=== PATIENT | female | born 1955 | race Caucasian/White ===

== ENCOUNTER 2016-10-24 08:42 | Emergency (ER) | payer OTHER ==
[~2016-10-24] VITALS: Ht 165.1 cm; Wt 125.0 kg
[2016-10-24 08:46] VITALS: BP 163/81; PULSE 68; RESP 16; TEMP 97.7; O2SAT 97
[2016-10-24] MEDS ORDERED: LEVO75TA3 PO (09:42)
--- NOTE | 2016-10-24 09:50 | PD ---
HPI Chief Complaint: Laceration/Skin Injury Time Seen by Provider: 09:35 Travel History International Travel<30 days: No Contact w/Intl Traveler<30days: No Traveled to known affect area: No History of Present Illness HPI 61 yo F. The patient accidentally injured the distal phalanx of the right index finger while preparing breakfast this morning resulting in laceration. Pt irrigated the wound at home. Copious bleeding was observed leading to ER evaluation. Resolution of bleeding occurred at time of ER arrival. No additional injury. Last tetanus > 5 years prior. PFSH Past Medical History Thyroid Disease: Yes Tetanus Vaccination: > 5 Years Influenza Vaccination: No ?: Not Past Surgical History Abdominal Surgery: Yes (Lap band) Section: Yes Social History Alcohol Use: Yes (Rare) Tobacco Use: No Substance Use: No Allergies-Medications (Allergen,Severity, Reaction): Coded Allergies: No Known Allergies (Unverified , 10/24/16) Reported Meds & Prescriptions Reported Meds & Active Scripts Active Reported Levothyroxine (Levothyroxine Sodium) 75 Mcg Tab 75 Mcg PO DAILY Review of Systems HENT: No: Headaches Cardiovascular: No: Chest Pain or Discomfort Physical Exam Narrative GENERAL: WNWD 61 yo F SKIN: Warm and dry. Approx 2mc linear laceration trace bleed, no foreign body, lcoated ulnar margin of distal right second phalanx. HEAD: Normocephalic. EYES: No scleral icterus. No injection or drainage. NECK: Supple, trachea midline. No JVD or lymphadenopathy. CARDIOVASCULAR: Regular rate and rhythm without murmurs, gallops, or rubs. RESPIRATORY: Breath sounds equal bilaterally. No accessory muscle use. GASTROINTESTINAL: Abdomen soft, non-tender, nondistended. MUSCULOSKELETAL: No cyanosis, or edema. Normal flexion/extension/sensation affected digit. BACK: Nontender without obvious deformity. No CVA tenderness. Data Data Last Documented VS Vital Signs Date Time Temp Pulse Resp B/P (MAP) Pulse Ox O2 Delivery O2 Flow Rate FiO2 10/24/16 10:30 10/24/16 08:46 97.7 68 16 97 Room Air MDM Medical Decision Making Medical Screen Exam Complete: Yes Emergency Medical Condition: Yes Differential Diagnosis laceration avulsion, abrasion, nerve injury, tendon injury Narrative Course Laceration repaired with dermabond. Extensive irrigation followed by peroxide sterilization. return precautions discussed. Procedures Procedure Narrative LACERATION LOCATION: second distal phalanx LENGTH: 2cm NUMBER OF STITCHES/RAFFI: dermabond REPAIR: The area of the laceration was prepped with Betadine and sterilely draped. The wound was copiously irrigated and explored without evidence of foreign body, tendon injury or neurovascular injury. The wound was closed using dermabond]. This was a single layer repair. A sterile dressing was applied. The patient was advised to keep the dressing clean and dry. Patient tolerated the procedure well. Diagnosis Primary Impression: Laceration of right index finger Qualified Codes: S61.210A - Laceration without foreign body of right index finger without damage to nail, initial encounter Referrals: Primary Care Physician as needed Additional Instructions: You have a choice when it comes to health care, and we are glad that you chose [facility]. Hopefully, we have met your expectations on today's visit. You are welcome to return to [facility] at any time, as we are committed to meeting the health care needs of our community. Med/Other Pt SpecificInfo: No Change to Meds Disposition: 01 DISCHARGE HOME Condition: Stable Joe Sands MD Oct 24, 2016 09:50
== END 2016-10-24 10:30 | disposition home or self-care (01) ==
LOC: PHED 08:42
DX: S61.210A Laceration without foreign body of right index finger without damage to nail, initial encounter (principal); E07.9 Disorder of thyroid, unspecified; W45.8XXA Other foreign body or object entering through skin, initial encounter; Y93.G1 Activity, food preparation and clean up
CPT/HCPCS: 12001